=== PATIENT | male | born 1985 | race Asian ===

== ENCOUNTER → 2017-07-18 | Outpatient (CLI) | payer BC ==
--- NOTE | 2017-07-18 13:26 | RADRPT ---
PROCEDURE: XR Chest. CLINICAL INDICATION: Cough. TECHNIQUE: Two views. Frontal and lateral. COMPARISON: 04/01/2013. FINDINGS: The lungs are clear. The heart size is normal. There is no pleural effusion. There is no pneumothorax. IMPRESSION: 1. Normal chest radiograph. 2. No change from 04/01/2013. RPTAT: QQ .Sarkis Fierro MD, MD Date Time Electronically viewed and signed by .Sarkis Fierro MD, MD on 07/18/2017 13:26 .R/
== END | disposition home or self-care (01) ==
LOC: LAB 12:01
PROVIDERS: ATTEND Internal Medicine
DX: M10.9 Gout, unspecified (principal)
CPT/HCPCS: 71020; 80053; 80061; 81003; 84443; 84560; 85025

== ENCOUNTER 2019-04-09 20:38 | Emergency (ER) | payer BC ==
[~2019-04-09] VITALS: Ht 165.1 cm; Wt 79.5 kg
[~2019-04-09 20:38] MED LIST: FAMO-96 PO; FEBU40TA PO; MECL-77 PO; ONDA4TAB8 PO
[2019-04-09 20:55] VITALS: Ht 165.1 cm; Wt 79.5 kg
[2019-04-09 22:26] VITALS: BP 132/86; PULSE 79; RESP 16
--- NOTE | 2019-04-09 22:29 | ERD ---
ER Documentation Chief Complaint Chief Complaint FELT LIGHTHEADED AND HAD BLURRED VISION WHILE DRIVING HPI 33-year-old male with history of gout presents for dizziness, lightheadedness and blurred vision while driving today. Symptoms have been a few hours ago. Symptoms have been for a few minutes and resolved afterwards. He did have prior similar symptoms 3 weeks ago. Denies chest pain or shortness of breath. Denies abdominal pain, nausea, vomiting. No other modifying factors noted, no treatment tried at home. ROS All systems reviewed and are negative except as per history of present illness. Medications Home Meds Active Scripts Meclizine Hcl* (Meclizine Hcl*) 25 Mg Tablet, 25 MG PO TID PRN for VERTIGO, #15 TAB Prov:CHUY HARKINS MD 04/14/19 Ondansetron Hcl* (Zofran*) 4 Mg Tablet, 4 MG PO Q8H PRN for NAUSEA AND/OR VOMITING, #30 TAB Prov:CHUY HARKINS MD 04/14/19 Allergies Allergies: Coded Allergies: allopurinol (Unverified Allergy, Unknown, 04/14/19) PMhx/Soc Medical and Surgical Hx: pt denies Surgical Hx History of Surgery: No Anesthesia Reaction: No Hx Neurological Disorder: No Hx Respiratory Disorders: No Hx Cardiac Disorders: No Hx Psychiatric Problems: No Hx Miscellaneous Medical Probl: No Hx Alcohol Use: Yes (OCASSIONAL ) Hx Substance Use: No Hx Tobacco Use: Yes Smoking Status: Current some day smoker Physical Exam Vitals Vital Signs Date Temp Pulse Resp B/P (MAP) Pulse Ox O2 O2 Flow FiO2 Time Delivery Rate 04/09/19 79 16 132/86 Room Air 22:26 (101) 04/09/19 98.4 95 18 147/67 98 20:55 (93) Physical Exam Const: No acute distress Head: Atraumatic Eyes: Normal Conjunctiva ENT: Normal External Ears, bilateral tympanic membrane intact without erythema or bulging noted, nose and Mouth examination normal, no tonsillar swelling or exudate noted Resp: Clear to auscultation bilaterally Cardio: Regular rate and rhythm, no murmurs, bilateral radial and dorsalis p devan pulses intact Skin: No petechiae or rashes Back: No midline or flank tenderness Ext: No cyanosis, or edema 5 out of 5 muscle strength bilateral upper and lower extremities Neur: Awake and alert, bilateral upper and lower extremity sensation intact Psych: Normal Mood and Affect Results 24 hrs Laboratory Tests Test 04/09/19 20:54 04/09/19 21:32 Bedside Glucose 136 mg/dL White Blood Count 6.7 10^3/ul Red Blood Count 4.96 10^6/ul Hemoglobin 15.1 g/dl Hematocrit 45.3 % Mean Corpuscular Volume 91.3 fl Mean Corpuscular Hemoglobin 30.4 pg Mean Corpuscular Hemoglobin Concent 33.3 g/dl Red Cell Distribution Width 12.3 % Platelet Count 190 10^3/UL Mean Platelet Volume 10.6 fl Immature Granulocytes % 0.200 % Neutrophils % 42.4 % Lymphocytes % 43.9 % Monocytes % 8.9 % Eosinophils % 3.5 % Basophils % 1.1 % Nucleated Red Blood Cells % 0.0 /100WBC Immature Granulocytes # 0.010 10^3/ul Neutrophils # 2.8 10^3/ul Lymphocytes # 2.9 10^3/ul Monocytes # 0.6 10^3/ul Eosinophils # 0.2 10^3/ul Basophils # 0.1 10^3/ul Nucleated Red Blood Cells # 0.0 10^3/ul Sodium Level 142 mmol/L Potassium Level 3.7 mmol/L Chloride Level 107 mmol/L Carbon Dioxide Level 25 mmol/L Anion Gap 10 Blood Urea Nitrogen 11 mg/dl Creatinine 0.83 mg/dl Est Glomerular Filtrat Rate mL/min > 60 mL/min Glucose Level 124 mg/dl Calcium Level 9.1 mg/dl Total Bilirubin 0.4 mg/dl Direct Bilirubin 0.00 mg/dl Indirect Bilirubin 0.4 mg/dl Aspartate Amino Transf (AST/SGOT) 29 IU/L Alanine Aminotransferase (ALT/SGPT) 40 IU/L Alkaline Phosphatase 103 IU/L Troponin I < 0.012 ng/ml B-Type Natriuretic Peptide 12 PG/ML Total Protein 7.3 g/dl Albumin 4.6 g/dl Globulin 2.70 g/dl Albumin/Globulin Ratio 1.70 Procedures/MDM Medical Decision Making: Differential diagnosis includes but not limited to benign vertigo, CVA, TIA, labyrinthitis, meniere's disease, brain tumor, seizure, ACS, abdominal aortic aneurysm, pulmonary embolism, pneumothorax, aortic dissection. ED course: CBC: no e/o of systemic infection or severe anemia CMP: no e/o severe acidosis, alkalosis, renal failure, diabetic ketoacidosis, liver disease Troponin was negative EKG: Rate/Rhythm: Normal Sinus Rhythm QRS, ST, T-waves: No changes consistent w/ acute ischemia Impression: No evidence of ischemia or arrhythmia Patient appeared well on physical exam. Patient neurovascularly intact. No facial droop, muscle weakness, sensation deficit or slurred speech to suggest CVA No focal neuro deficits to suggest brain tumor. Low suspicion for pneumothorax given on shortness of breath, no chest pain and no tachycardia as lungs clear and equal on exam Low suspicion for PE given no risk factors, no SOB, no tachycardia doubt aortic dissection given no chest pain with radiation to the back Patient was given . Symptoms improved with treatment. There is a possibility for benign positional vertigo however advised patient to follow-up with primary care physician and possible referral to neurology for more definitive diagnosis. Patient advised to follow up with PCP in 1-2 days. Patient advised to return to ED for new or worsening symptoms. Patient stable on discharge from the ED. Disclaimer: Inadvertent spelling and grammatical errors are likely due to EHR/dictation software use and do not reflect on the overall quality of patient care. Also, please note that the electronic time recorded on this note does not necessarily reflect the actual time of the patient encounter. Departure Diagnosis: Primary Impression: Dizziness Condition: Fair Patient Instructions: Possible Causes of Dizziness or Fainting Additional Instructions: Call your primary care doctor TOMORROW for an appointment during the next 1-2 days.See the doctor sooner or return here if your condition worsens before your appointment time. JOSE THORNTON DO Apr 09, 2019 22:29
== END 2019-04-09 22:44 | disposition home or self-care (01) ==
LOC: FTE 20:38
DX: R42 Dizziness and giddiness (principal); F17.210 Nicotine dependence, cigarettes, uncomplicated
CPT/HCPCS: 36415; 80053; 82962; 83880; 84484; 85025; 93005

== ENCOUNTER 2019-04-14 08:55 | Emergency (ER) | payer BC ==
[~2019-04-14] VITALS: Ht 167.6 cm; Wt 70.0 kg
[2019-04-14 08:57] VITALS: BP 128/84; PULSE 74; RESP 16; Ht 167.6 cm; Wt 70.0 kg
[2019-04-14] MEDS ORDERED: SOD CHLORIDE 0.9% 1,000 ML IV STA (09:09)
[2019-04-14] MEDS ORDERED: ONDANSETRON 4 MG INJ IV STA (09:09)
--- NOTE | 2019-04-14 09:12 | ERD ---
ER Documentation Chief Complaint Chief Complaint DIZZINESS THIS AM. HPI Otherwise healthy 33-year-old man complains of dizziness, room spinning sensation, blurry vision while working today. He had some nausea but no vomiting, states he had similar symptoms a few days ago and was worked up in this ER. He had no chest pain or shortness of breath, no fevers or chills, no vomiting or diarrhea, no recent weight loss, no vision loss. ROS All systems reviewed and are negative except as per history of present illness. Medications Home Meds Active Scripts Meclizine Hcl* (Meclizine Hcl*) 25 Mg Tablet, 25 MG PO TID PRN for VERTIGO, #15 TAB Prov:CHUY HARKINS MD 04/14/19 Ondansetron Hcl* (Zofran*) 4 Mg Tablet, 4 MG PO Q8H PRN for NAUSEA AND/OR VOMITING, #30 TAB Prov:CHUY HARKINS MD 04/14/19 Discontinued Reported Medications Febuxostat* (Uloric*) 40 Mg Tablet, 40 MG PO DAILY, TAB 05/17/18 Discontinued Scripts Famotidine* (Pepcid*) 20 Mg Tablet, 20 MG PO BID PRN for abdominal pain for 4 Days, TAB Prov:KAMLA MERCEDES MD 05/17/18 Allergies Allergies: Coded Allergies: allopurinol (Unverified Allergy, Unknown, 04/14/19) PMhx/Soc None History of Surgery: No Anesthesia Reaction: No Hx Neurological Disorder: No Hx Respiratory Disorders: No Hx Cardiac Disorders: No Hx Psychiatric Problems: No Hx Miscellaneous Medical Probl: No Hx Alcohol Use: Yes (OCASSIONAL ) Hx Substance Use: No Hx Tobacco Use: Yes FmHx Family History: No diabetes Physical Exam Vitals Vital Signs Date Temp Pulse Resp B/P (MAP) Pulse Ox O2 O2 Flow FiO2 Time Delivery Rate 04/14/19 97.9 74 16 128/84 99 08:57 (99) Physical Exam GENERAL: Well-developed, well-nourished, well-hydrated, in no apparent distress, looks nontoxic in appearance NEURO: Alert and oriented 3, cranial nerves II through XII intact bilaterally, pupils equal round reactive to light, no focal deficits or facial asymmetry, sensation intact distally Strength 5/5 in upper and lower extremities bilaterally CARDIAC: Regular rate and rhythm, no murmurs rubs or gallops LUNGS: Clear bilaterally no wheezing crackles or stridor SKIN: Warm and dry to touch, no abrasions, contusions, or hematomas, no lacerations, no ecchymosis, no target lesions, and without ulcers EXTREMITIES: No clubbing cyanosis or edema, calves are bilaterally symmetrical, no Homans sign, no popliteal cord sign. Distal pulses equal and bilateral PSYCH: Normal affect without agitation or irritability Result Diagram: 04/14/1993704/14/19937 Results 24 hrs Laboratory Tests Test 04/14/19 09:38 White Blood Count 10.2 10^3/ul Red Blood Count 5.20 10^6/ul Hemoglobin 16.1 g/dl Hematocrit 47.8 % Mean Corpuscular Volume 91.9 fl Mean Corpuscular Hemoglobin 31.0 pg Mean Corpuscular Hemoglobin Concent 33.7 g/dl Red Cell Distribution Width 12.0 % Platelet Count 200 10^3/UL Mean Platelet Volume 10.9 fl Immature Granulocytes % 0.400 % Neutrophils % 70.7 % Lymphocytes % 21.7 % Monocytes % 5.3 % Eosinophils % 1.2 % Basophils % 0.7 % Nucleated Red Blood Cells % 0.0 /100WBC Immature Granulocytes # 0.040 10^3/ul Neutrophils # 7.2 10^3/ul Lymphocytes # 2.2 10^3/ul Monocytes # 0.5 10^3/ul Eosinophils # 0.1 10^3/ul Basophils # 0.1 10^3/ul Nucleated Red Blood Cells # 0.0 10^3/ul Sodium Level 143 mmol/L Potassium Level 4.9 mmol/L Chloride Level 109 mmol/L Carbon Dioxide Level 23 mmol/L Anion Gap 11 Blood Urea Nitrogen 12 mg/dl Creatinine 0.71 mg/dl Est Glomerular Filtrat Rate mL/min > 60 mL/min Glucose Level 93 mg/dl Calcium Level 9.8 mg/dl Total Bilirubin 0.8 mg/dl Direct Bilirubin 0.00 mg/dl Indirect Bilirubin 0.8 mg/dl Aspartate Amino Transf (AST/SGOT) 35 IU/L Alanine Aminotransferase (ALT/SGPT) 33 IU/L Alkaline Phosphatase 102 IU/L Troponin I < 0.012 ng/ml Total Protein 7.9 g/dl Albumin 4.8 g/dl Globulin 3.10 g/dl Albumin/Globulin Ratio 1.54 Lipase 196 U/L Current Medications Medications Dose Sig/Jorge Start Time Status Last (Trade) Ordered Route PRN Stop Time Admin Dose Reason Admin Sodium 1,000 ml @ Q1H STAT 04/14/19 DC Chloride 1,000 mls/hr IV 09:04/14/19 10:08 Ondansetron 4 mg ONCE STAT 04/14/19 DC HCl (Zofran IV 09:04/14/19 Inj) 09:16 Procedures/MDM IV line was established patient was placed on engine monitor rhythm strip revealed a sinus rhythm at about 80 bpm with upright P and T waves. Patient was afebrile EKG performed, read by me revealed a normal sinus rhythm 89 bpm, normal axis, narrow QRS complex, no concerning ST elevations or depressions noted CT scan of the brain was negative for acute bleed mass or shift Administer 1 L normal saline IV and Zofran 4 mg IV for dizziness. CBC and electrolytes are normal, liver function tests were normal, troponin was negative. Differential diagnoses considered, included but not limited to acute coronary syndrome, pulmonary embolism, aortic dissection, abdominal aortic aneurysm, sepsis, stroke, meningitis, encephalitis, pneumonia, appendicitis, cholecyst itis, bowel obstruction, pyelonephritis, nephrolithiasis, cystitis, as well as metabolic, hematologic, and electrolyte abnormalities. As well as abscess, cellulitis, fractures, and dislocations. Patient feels much better at this time, and vital signs are normal, symptoms have improved. I did give strict instructions to return to the ED if symptoms continue or worsen, patient will otherwise follow-up with primary care physician. Patient understood instructions and agreed to plan. Disclaimer: Inadvertent spelling and grammatical errors are likely due to EHR/dictation software use and do not reflect on the overall quality of patient care. Also, please note that the electronic time recorded on this note does not necessarily reflect the actual time of the patient encounter. Departure Diagnosis: Primary Impression: Dizziness Condition: Good CHUY HARKINS MD Apr 14, 2019 09:12
== END 2019-04-14 12:21 | disposition home or self-care (01) ==
LOC: E/R 08:55
DX: R42 Dizziness and giddiness (principal); Z87.891 Personal history of nicotine dependence
CPT/HCPCS: 36415; 70450; 80053; 83690; 84484; 85025; 93005; 99285; J7030